=== PATIENT | male | born 1970 | race Caucasian/White ===

== ENCOUNTER 2017-08-31 06:04 | Day surgery (SDC) | payer OTHER ==
[~2017-08-31] VITALS: Ht 180.3 cm; Wt 110.2 kg
[2017-08-31] MEDS ORDERED: SODIUM CHLORIDE 0.9% 1,000 ML IV SCH (06:58)
[2017-08-31] MEDS ORDERED: AMLO2.5T PO (06:59)
[2017-08-31] MEDS ORDERED: LOSA100T6 PO (06:59)
[2017-08-31] MEDS ORDERED: MIDAZOLAM 1 MG/ML, 2ML ONE (07:13)
[2017-08-31] MEDS ORDERED: FENTANYL PF 100 MCG/2ML ONE (07:13)
[2017-08-31] MEDS ORDERED: FLUMAZENIL 0.1 MG/1 ML, 5ML ONE (07:14)
[2017-08-31] MEDS ORDERED: NALOXONE 1 MG/ML, 2ML ONE (07:14)
[2017-08-31 07:25] VITALS: BP 163/98
[2017-08-31 07:32] LABS: INTERNATIONAL NORMALIZED RATIO 1.02 (0.93-1.1); PROTHROMBIN TIME 10.5 Seconds (9.6-11.5)
== END 2017-08-31 09:45 ==
LOC: OUT 06:04
PROVIDERS: ATTEND Internal Medicine Nephrology
DX: I12.9 Hypertensive chronic kidney disease with stage 1 through stage 4 chronic kidney disease, or unspecified chronic kidney disease (principal); N18.9 Chronic kidney disease, unspecified; E79.0 Hyperuricemia without signs of inflammatory arthritis and tophaceous disease; K76.0 Fatty (change of) liver, not elsewhere classified; Z98.890 Other specified postprocedural states
CPT/HCPCS: 36415; 50200; 77012; 85610; 88300; 88329; 99156; J2250; J3010; J7030; 99157; J2310

== ENCOUNTER 2017-12-25 02:06 | Emergency (ER) | payer OTHER ==
[~2017-12-25] VITALS: Ht 180.3 cm; Wt 105.6 kg
[~2017-12-25 02:06] MED LIST: AMLO2.5T PO; LOSA100T6 PO
[2017-12-25] MEDS ORDERED: MORPHINE SULFATE 4 MG/ML, 1ML ONE (02:37)
[2017-12-25] MEDS ORDERED: ONDANSETRON ODT 4 MG ONE (02:37)
[2017-12-25] MEDS ORDERED: KETOROLAC 30 MG/1 ML ONE (02:37)
[2017-12-25 02:44] LABS: MICROSCOPIC AUTO
[2017-12-25 02:45] LABS: CULTURE INDICATED? NO
[2017-12-25 02:50] LABS: BASOPHILS # (AUTO) 0.03 x10^3/uL (0-0.1); BASOPHILS % (AUTO) 0 % (0-1); EOSINOPHILS # (AUTO) 0.11 x10^3/uL (0-0.4); EOSINOPHILS % (AUTO) 1 % (1-7); LYMPHOCYTES # (AUTO) 1.66 x10^3/uL (1-3.4); LYMPHOCYTES % (AUTO) 18 % (22-44); MD NO; MEAN CORPUSCULAR HEMOGLOBIN 30.5 pg (27.5-34.5); MEAN CORPUSCULAR HGB CONC 34.5 g/dL (33.2-36.2); MEAN CORPUSCULAR VOLUME 88.5 fL (81-97); MEAN PLATELET VOLUME 9.2 fL (7.4-10.4); MONOCYTES % (AUTO) 7 % (2-9); NEUTROPHILS # (AUTO) 6.77 x10^3/uL (1.8-6.8); NEUTROPHILS % (AUTO) 74 % (42-75); PLATELET COUNT 162 x10^3/uL (130-400); RED BLOOD COUNT 5.58 x10^6/uL (4.38-5.82); RED CELL DISTRIBUTION WIDTH 13.1 % (9.4-14.8)
[2017-12-25 03:00] LABS: ALANINE AMINOTRANSFERASE 40 U/L (12-78); ALBUMIN 4.1 g/dL (3.4-5.0); ANION GAP 7 mmol/L (5-15); CALCIUM 8.9 mg/dL (8.5-10.1); CHLORIDE 108 mmol/L (98-107); CREATININE 2.06 mg/dL (0.7-1.3)
[2017-12-25] MEDS ORDERED: SODIUM CHLORIDE FLUSH 10ML SYR IVF ONE (03:00)
[2017-12-25] MEDS ORDERED: MORPHINE SULFATE 4 MG/ML, 1ML IVPush PRN (03:00)
[2017-12-25] MEDS ORDERED: ONDANSETRON ODT 4 MG PO ONE (03:00)
[2017-12-25] MEDS ORDERED: KETOROLAC 30 MG/1 ML IVPush ONE (03:00)
[2017-12-25 03:02] LABS: ALKALINE PHOSPHATASE 64 U/L (45-117); BILIRUBIN,TOTAL 1.7 mg/dL (0.2-1.0); TOTAL PROTEIN 7.3 g/dL (6.4-8.2)
[2017-12-25 03:44] VITALS: BP 147/91
== END 2017-12-25 03:46 | disposition home or self-care (01) ==
LOC: ED 03:40
DX: K59.00 Constipation, unspecified (principal); R16.1 Splenomegaly, not elsewhere classified; N13.30 Unspecified hydronephrosis; I12.9 Hypertensive chronic kidney disease with stage 1 through stage 4 chronic kidney disease, or unspecified chronic kidney disease; N18.9 Chronic kidney disease, unspecified
CPT/HCPCS: 36415; 74176; 80053; 81001; 83690; 85025; 96374; 96375; 99285; J1885; Q0162

== ENCOUNTER 2017-12-31 22:04 | Inpatient (IN) | payer OTHER ==
[~2017-12-31] VITALS: Ht 180.3 cm; Wt 106.0 kg
[~2017-12-31 22:04] MED LIST changes: +AMLO5TAB2 PO; +LOSA50TA2 PO
[2017-12-31] MEDS ORDERED: ONDANSETRON ODT 4 MG ONE (22:36)
[2017-12-31] MEDS ORDERED: HYDROmorphone 2 MG/ML, 1ML ONE ×2 (22:37→23:10)
[2017-12-31] MEDS: HYDROmorphone 1 MG/ML, 1ML IVPush PRN ×2 (22:46→23:15)
[2017-12-31 22:56] LABS: MICROSCOPIC AUTO
[2017-12-31 22:56] LABS: BASOPHILS # (AUTO) 0.06 x10^3/uL (0-0.1); BASOPHILS % (AUTO) 1 % (0-1); EOSINOPHILS # (AUTO) 0.14 x10^3/uL (0-0.4); EOSINOPHILS % (AUTO) 2 % (1-7); LYMPHOCYTES # (AUTO) 1.78 x10^3/uL (1-3.4); LYMPHOCYTES % (AUTO) 22 % (22-44); MD NO; MEAN CORPUSCULAR HGB CONC 34.1 g/dL (33.2-36.2); MEAN CORPUSCULAR VOLUME 88.2 fL (81-97); MONOCYTES # (AUTO) 0.81 x10^3/uL (0.2-0.8); MONOCYTES % (AUTO) 10 % (2-9); NEUTROPHILS # (AUTO) 5.46 x10^3/uL (1.8-6.8); NEUTROPHILS % (AUTO) 66 % (42-75); PLATELET COUNT 218 x10^3/uL (130-400); RED BLOOD COUNT 5.71 x10^6/uL (4.38-5.82); RED CELL DISTRIBUTION WIDTH 12.9 % (9.4-14.8)
[2017-12-31 23:00] LABS: CULTURE INDICATED? NO
[2017-12-31] MEDS ORDERED: SODIUM CHLORIDE 0.9% 1,000ML IV ONE (23:00)
[2017-12-31] MEDS ORDERED: ONDANSETRON ODT 4 MG PO ONE (23:00)
[2017-12-31] MEDS ORDERED: SODIUM CHLORIDE FLUSH 10ML SYR IVF ONE (23:00)
[2017-12-31 23:07] LABS: ALANINE AMINOTRANSFERASE 74 U/L (12-78); ALBUMIN 4.1 g/dL (3.4-5.0); ANION GAP 9 mmol/L (5-15); CALCIUM 9.6 mg/dL (8.5-10.1); CHLORIDE 107 mmol/L (98-107)
[2017-12-31 23:10] LABS: ALKALINE PHOSPHATASE 75 U/L (45-117)
[2018-01-01] MEDS ORDERED: MORPHINE SULFATE 4 MG/ML, 1ML IVPush ONE (00:30)
[2018-01-01] MEDS ORDERED: DIPHENHYDRAMINE 50 MG/ML, 1ML ONE (00:50)
[2018-01-01] MEDS ORDERED: PROMETHAZINE 25 MG/ML, 1ML ONE (00:50)
[2018-01-01] MEDS ORDERED: HYDROmorphone 2 MG/ML, 1ML ONE (00:51)
[2018-01-01] MEDS ORDERED: PROMETHAZINE 25 MG/ML, 1ML IM ONE (01:00)
[2018-01-01] MEDS ORDERED: HYDROmorphone 1 MG/ML, 1ML IV ONE (01:00)
[2018-01-01] MEDS ORDERED: DIPHENHYDRAMINE 50 MG/ML, 1ML IVPush ONE (01:00)
[2018-01-01] MEDS ORDERED: OMEG1CAP6 PO (01:11)
[2018-01-01] MEDS ORDERED: CETI-237 PO (01:11)
[2018-01-01 02:00] VITALS: BP 137/92
[2018-01-01 03:22] VITALS: BP 137/92
[2018-01-01] MEDS ORDERED: LABETALOL 5MG/ML, 20ML IVPush PRN (04:00)
[2018-01-01] MEDS ORDERED: ACETAMINOPHEN 325 MG TABLET PO PRN ×2 (04:00→09:00)
[2018-01-01] MEDS ORDERED: hydrALAzine 20 MG/ML, 1ML IVPush PRN (04:00)
[2018-01-01] MEDS ORDERED: ONDANSETRON ODT 4 MG PO PRN (04:00)
[2018-01-01] MEDS ORDERED: morphine SULFATE 10 MG/ML, 1ML IVPush PRN (04:00)
[2018-01-01] MEDS ORDERED: KETOROLAC 30 MG/1 ML IVPush ONE (04:30)
[2018-01-01] MEDS: SODIUM CHLORIDE 0.9% 1,000 ML IV SCH ×3 (05:52→23:55)
[2018-01-01 07:35] VITALS: BP 130/78
[2018-01-01] MEDS ORDERED: LORazepam 1MG TABLET PO PRN (08:00)
[2018-01-01] MEDS ORDERED: FENTANYL PF 250 MCG/5ML ONE (08:43)
[2018-01-01] MEDS ORDERED: MIDAZOLAM 1 MG/ML, 2ML ONE (08:43)
[2018-01-01] MEDS ORDERED: FENTANYL PF 100 MCG/2ML IV PRN (09:00)
[2018-01-01] MEDS ORDERED: MEPERIDINE/PF 25MG/0.5ML IVPush PRN (09:00)
[2018-01-01] MEDS ORDERED: OXYcodone 5 MG/5 ML ORAL.SOL UDC PO PRN (09:00)
[2018-01-01] MEDS: LOSARTAN 50MG TABLET PO SCH (09:00)
[2018-01-01] MEDS ORDERED: HYDROmorphone 1 MG/ML, 1ML IV PRN (09:00)
[2018-01-01] MEDS ORDERED: ONDANSETRON ODT 8 MG PO PRN (09:00)
[2018-01-01] MEDS ORDERED: PROPOFOL 10 MG/ML, 20ML ONE (09:14)
[2018-01-01] MEDS ORDERED: DEXAMETHASONE 4 MG/ML, 1ML ONE ×3 (09:14)
[2018-01-01] MEDS ORDERED: LIDOCAINE-MPF 2% ,5ML ONE (09:14)
[2018-01-01] MEDS ORDERED: CEFAZOLIN 1,000 MG ONE ×2 (09:14)
[2018-01-01] MEDS ORDERED: ONDANSETRON 2MG/ML, 2ML ONE (09:15)
[2018-01-01] MEDS ORDERED: OMNIPAQUE 350 MG/ML, 50 ML BOTTLE IV ONE (09:21)
[2018-01-01 13:05] VITALS: BP 138/83
[2018-01-01 20:18] VITALS: BP 133/79
[2018-01-01] MEDS ORDERED: AMLODIPINE 5 MG TABLET PO SCH (21:00)
[2018-01-02 02:29] VITALS: BP 114/64
[2018-01-02 05:56] LABS: BASOPHILS % (AUTO) 0 % (0-1); EOSINOPHILS % (AUTO) 0 % (1-7); LYMPHOCYTES % (AUTO) 13 % (22-44); MD NO; MEAN CORPUSCULAR VOLUME 88.3 fL (81-97); MEAN PLATELET VOLUME 8.9 fL (7.4-10.4); MONOCYTES # (AUTO) 0.58 x10^3/uL (0.2-0.8); MONOCYTES % (AUTO) 6 % (2-9); NEUTROPHILS # (AUTO) 7.21 x10^3/uL (1.8-6.8); NEUTROPHILS % (AUTO) 80 % (42-75); PLATELET COUNT 161 x10^3/uL (130-400); RED BLOOD COUNT 4.66 x10^6/uL (4.38-5.82); RED CELL DISTRIBUTION WIDTH 12.9 % (9.4-14.8)
[2018-01-02 06:03] LABS: ANION GAP 7 mmol/L (5-15); CALCIUM 8.1 mg/dL (8.5-10.1); CHLORIDE 110 mmol/L (98-107)
[2018-01-02 06:05] LABS: CREATININE 1.64 mg/dL (0.7-1.3)
[2018-01-02 08:11] VITALS: BP 146/74
[2018-01-02] MEDS: LOSARTAN 50MG TABLET PO SCH (09:00)
[2018-01-02] MEDS: SODIUM CHLORIDE 0.9% 1,000 ML IV SCH (09:55)
== END 2018-01-02 12:00 | disposition home or self-care (01) | DRG 669 ==
LOC: ED 23:41 → EDIP 01-01 01:22 → 4WST 01-01 01:48 → DCLOUNGE 01-02 10:43
PROVIDERS: ADMIT Hospitalist; ATTEND Hospitalist
PROC: BT1F1ZZ Fluoroscopy of Left Kidney, Ureter and Bladder using Low Osmolar Contrast (ICD-10-PCS; 2018-01-01)
PROC: 0TC78ZZ Extirpation of Matter from Left Ureter, Via Natural or Artificial Opening Endoscopic (ICD-10-PCS; principal; 2018-01-01 08:30)
DX: N13.2 Hydronephrosis with renal and ureteral calculous obstruction (principal); N17.9 Acute kidney failure, unspecified; N39.0 Urinary tract infection, site not specified; I12.9 Hypertensive chronic kidney disease with stage 1 through stage 4 chronic kidney disease, or unspecified chronic kidney disease; N18.3 Chronic kidney disease, stage 3 (moderate)
CPT/HCPCS: 36415; 74176; 74420; 80048; 80053; 81001; 83735; 84100; 85025; 96361; 96372; 96374; 96375; J0690; J1100; J1170; J2250; J2405; J2550; J2704; J3010; J3490; Q0162; Q9967; C1758; C1769; J1200; J2270; J7030